=== PATIENT | female | born 1945 | race Caucasian/White ===

== ENCOUNTER → 2016-11-19 | Outpatient (CLI) | payer MEDICARE, BC ==
--- NOTE | 2016-11-20 10:21 | MM ---
Reason for exam: screening (asymptomatic). Last mammogram was performed 1 year and 2 months ago. History: Patient is postmenopausal. Family history of breast cancer in sister at age 40. Benign stereotactic core biopsy of the left breast, April 16, 2000. Core biopsy of the left breast. Excisional biopsy of the left breast. Took estrogen for 6 months beginning at age 38. Physical Findings: A clinical breast exam by your physician is recommended on an annual basis and results should be correlated with mammographic findings. MG 3D Screening Mammo W/Cad Bilateral CC and MLO view(s) were taken. Prior study comparison: October 02, 2015, bilateral MG screening mammo w CAD. August 20, 2014, bilateral MG screening mammo w CAD. The breast tissue is heterogeneously dense. This may lower the sensitivity of mammography. Previous mammotome biopsy in the left breast. No significant changes when compared with prior studies. ASSESSMENT: Benign, BI-RAD 2 RECOMMENDATION: Routine screening mammogram of both breasts in 1 year.
== END | disposition home or self-care (01) ==
LOC: RADMAMWWP 08:11
PROVIDERS: ATTEND Surgery
DX: Z12.31 Encounter for screening mammogram for malignant neoplasm of breast (principal)
CPT/HCPCS: 77063; G0202

== ENCOUNTER → 2024-09-22 | Outpatient (CLI) | payer MEDICARE, OTHER ==
--- NOTE | 2024-09-22 13:02 | CA ---
Transthoracic Echo Report Name: Nusrat Vail Age: 78 Gender: F : 1945 Exam Date: 09/22/2024 11:03 Exam Location: [facility] Ht (in): 62 Wt (lb): 165 Ordering Physician: Poli Gordon DO Attending/Referring Phys: Bench Shear Operator Leslie Bustamante RDCS Procedure CPT: Indications: R60.0 EDEMA BOTH LEGS Cardiac Hx: Technical Quality: Fair Contrast 1: Total Dose (mL): Contrast 2: Total Dose (mL): MEASUREMENTS (Male / Female) Normal Values 2D ECHO LV Diastolic Diameter PLAX 4.1 cm 4.2 - 5.9 / 3.9 - 5.3 cm LV Systolic Diameter PLAX 2.9 cm IVS Diastolic Thickness 0.9 cm 0.6 - 1.0 / 0.6 - 0.9 cm LVPW Diastolic Thickness 1.0 cm 0.6 - 1.0 / 0.6 - 0.9 cm LV Relative Wall Thickness 0.5 RV Internal Dim ED PLAX 3.0 cm LVOT Diameter 1.7 cm LV Diastolic Volume MOD BP 70.6 cm??? 67 - 155 / 56 - 104 cm??? LV Systolic Volume MOD BP 30.5 cm??? 22 - 58 / 19 - 49 cm??? LV Ejection Fraction MOD BP 56.8 % >= 55 % LV Cardiac Index MOD BP 1767.8 cm???/min???m??? LV Diastolic Volume MOD 4C 69.4 cm??? LV Systolic Volume MOD 4C 29.2 cm??? LV Ejection Fraction MOD 4C 58.0 % LV Cardiac Index MOD 4C 1775.5 cm???/min???m??? LV Diastolic Length 4C 7.9 cm LV Systolic Length 4C 6.2 cm LV Diastolic Volume MOD 2C 65.7 cm??? LV Systolic Volume MOD 2C 31.2 cm??? LV Ejection Fraction MOD 2C 52.6 % LV Cardiac Index MOD 2C 1525.3 cm???/min???m??? LV Diastolic Length 2C 7.2 cm LV Systolic Length 2C 5.9 cm LA Volume 31.7 cm??? 18 - 58 / 22 - 52 cm??? LA Volume Index 17.3 cm???/m??? 16 - 28 cm???/m??? M-MODE Aortic Root Diameter MM 2.6 cm LA Systolic Diameter MM 2.9 cm LA Ao Ratio MM 1.1 AV Cusp Separation MM 1.9 cm DOPPLER AV Peak Velocity 120.8 cm/s AV Peak Gradient 5.8 mmHg AV Mean Velocity 94.5 cm/s AV Mean Gradient 3.8 mmHg AV Velocity Time Integral 25.5 cm LVOT Peak Velocity 107.0 cm/s LVOT Peak Gradient 4.6 mmHg LVOT Velocity Time Integral 21.5 cm LVOT Stroke Volume 50.5 cm??? LVOT Stroke Volume Index 28.7 ml/m??? LVOT Cardiac Index 2229.0 cm???/min???m??? AV Area Cont Eq vti 2.0 cm??? AV Area Cont Eq pk 2.1 cm??? MV Area PHT 4.1 cm??? Mitral E Point Velocity 73.3 cm/s Mitral A Point Velocity 103.7 cm/s Mitral E to A Ratio 0.7 MV Deceleration Time 183.4 ms MV E' Velocity 8.3 cm/s Mitral E to MV E' Ratio 8.8 FINDINGS Left Ventricle Normal Left ventricular size, wall thickness, systolic function with no obvious regional wall motion abnormalities. Normal Left ventricular diastolic filling pattern. Left ventricular ejection fraction is estimated at 55-60 %. Right Ventricle Normal right ventricular size and function. Right ventricular systolic pressure within normal limits. Right Atrium Normal right atrial size. Left Atrium Normal left atrial size. Mitral Valve Structurally normal mitral valve. Mild mitral annular calcification. Trace to mild mitral regurgitation. Aortic Valve No aortic valve stenosis or regurgitation. Tricuspid Valve Structurally normal tricuspid valve. Trace tricuspid regurgitation. Pulmonic Valve Structurally normal pulmonic valve. Trace pulmonic regurgitation. Pericardium No pericardial effusion. Aorta Normal size aortic root and proximal ascending aorta. CONCLUSIONS LVEF 55 to 60% No obvious regional wall motion abnormality No significant valvular dysfunction No significant chamber size abnormality Previewed by: Dr Solo Willett (Electronically Signed) Final Date: 22 September 2024 13:02
== END | disposition home or self-care (01) ==
LOC: RADECHMAIN 10:57
PROVIDERS: ATTEND Family Medicine
DX: R60.0 Localized edema (principal); I37.1 Nonrheumatic pulmonary valve insufficiency; I07.1 Rheumatic tricuspid insufficiency; I34.0 Nonrheumatic mitral (valve) insufficiency; I34.81 Nonrheumatic mitral (valve) annulus calcification
CPT/HCPCS: 93306